=== PATIENT | female | born 1955 | race Caucasian/White ===

== ENCOUNTER → 2017-05-08 | Outpatient (CLI) | payer OTHER ==
[~2017-05-08] MED LIST: DOXYCYCLINE HY100 M5 PO; LEXAPRO20 MG PO; PRILOSEC20 M2 PO; RALOXIFENE HCL60 MG PO
[2017-05-08 11:01] LABS: BASO # 0.1 10*3/uL (0.0-0.1); BASO % 0.7 % (0.0-1.0); EOS # 0.3 10*3/uL (0.0-0.4); EOS % 4.4 % (1.0-4.0); HEMATOCRIT 39.7 % (37.0-47.0); LYMPH # 2.7 10*3/uL (1.3-4.4); LYMPH % 36.3 % (27.0-41.0); MEAN CELL VOLUME 90.8 fl (81.0-99.0); MEAN CORPUSCULAR HGB 29.7 pg (27.0-31.0); MEAN CORPUSCULAR HGB CONC 32.7 g/dl (33.0-37.0); MONO # 0.5 10*3/uL (0.1-1.0); MONO % 6.4 % (3.0-9.0); NEUT # 3.8 10*3/uL (2.3-7.9); NEUT % 51.9 % (47.0-73.0); PLATELET COUNT AUTOMATED 226 10*3/uL (130-400); RED BLOOD COUNT 4.37 10*6/uL (4.10-5.10); RED CELL DISTRI WIDTH 13.8 % (0-14.5); WHITE BLOOD COUNT 7.3 10*3/uL (4.8-10.8)
[2017-05-08 11:15] LABS: ALBUMIN 3.6 gm/dl (3.1-4.5); ALKALINE PHOSPHATASE 77 U/L (45-117); BILIRUBIN, TOTAL 0.5 mg/dl (0.2-1.0); BUN 9 mg/dl (7-24); CARBON DIOXIDE 28 mmol/L (21-32); CHLORIDE 105 mmol/L (98-107); CHOLESTEROL 233 mg/dL (<200); EST GLOM FILT AFRICAN AMERICAN > 60 ml/min; GLUCOSE 93 mg/dL (65-99); HDL CHOLESTEROL 38 mg/dl (40-60); LDL CHOLESTEROL 129 mg/dL (9-159); POTASSIUM 3.8 mmol/L (3.5-5.1); SGOT/AST 17 IU/L (3-35); SGPT/ALT 29 U/L (12-78); SODIUM 142 mmol/L (136-145); TOTAL PROTEIN 7.7 gm/dL (6.4-8.2); TRIGLYCERIDES 331 mg/dl (<150); VLDL CHOLESTEROL 66 mg/dL (6-40)
== END | disposition home or self-care (01) ==
LOC: LAB 10:28
PROVIDERS: Physician Assistant Medical
DX: E78.4 Other hyperlipidemia (principal)

== ENCOUNTER → 2018-07-18 | Outpatient (CLI) | payer OTHER | END | disposition home or self-care (01) | LOC: MAMMO 10:20 | DX: Z12.31 Encounter for screening mammogram for malignant neoplasm of breast (principal) ==

== ENCOUNTER 2020-01-08 11:25 | Inpatient (IN) | payer MEDICARE, OTHER ==
[2020-01-08] VITALS (8 sets, daily range): BP systolic 94–1149; BP diastolic 43–61
[~2020-01-08] VITALS: Ht 163 cm; Wt 81.0 kg
[2020-01-08 12:17] LABS: BASO # 0.1 10*3/uL (0.0-0.1); BASO % 0.3 % (0.0-1.0); EOS # 0.1 10*3/uL (0.0-0.4); EOS % 0.5 % (1.0-4.0); HEMATOCRIT 35.7 % (37.0-47.0); HEMOGLOBIN 11.6 g/dl (12.0-16.0); LYMPH # 1.3 10*3/uL (1.3-4.4); MEAN CELL VOLUME 89.9 fl (81.0-99.0); MEAN CORPUSCULAR HGB 29.2 pg (27.0-31.0); MEAN CORPUSCULAR HGB CONC 32.5 g/dl (33.0-37.0); MEAN PLATELET VOLUME 9.7 fl (9.6-12.3); MONO # 0.9 10*3/uL (0.1-1.0); NEUT % 86.5 % (47.0-73.0); PLATELET COUNT AUTOMATED 211 10*3/uL (130-400); RED BLOOD COUNT 3.97 10*6/uL (4.10-5.10); RED CELL DISTRI WIDTH 14.4 % (0-14.5); WHITE BLOOD COUNT 18.5 10*3/uL (4.8-10.8)
[2020-01-08 12:26] LABS: ALBUMIN 3.1 gm/dl (3.1-4.5); ALKALINE PHOSPHATASE 83 U/L (45-117); BUN 19 mg/dl (7-24); CHLORIDE 100 mmol/L (98-107); CREATININE 1.14 mg/dL (0.55-1.02); POTASSIUM 2.8 mmol/L (3.5-5.1); SGOT/AST 32 IU/L (3-35); SGPT/ALT 38 U/L (12-78); SODIUM 133 mmol/L (136-145); TOTAL PROTEIN 7.6 gm/dL (6.4-8.2)
[2020-01-08 12:27] LABS: ACT PARTIAL THROMBO TIME 30.9 SECONDS (20.0-32.1); INTERNATIONAL NORM RATIO 1.1 (2.0-3.5)
[2020-01-08 12:29] LABS: TROPONIN I < 0.015 ng/ml (<0.045)
[2020-01-08 12:56] LABS: BILIRUBIN NEGATIVE (NEGATIVE); BLOOD 3+ (NEGATIVE); CLARITY CLOUDY (CLEAR); COLOR YELLOW (YELLOW); GLUCOSE NEGATIVE (NEGATIVE); KETONE 2+ (NEGATIVE)
[2020-01-08 12:57] LABS: LEUKO ESTERASE 3+ (NEGATIVE); NITRITE POSITIVE (NEGATIVE)
[2020-01-08 12:58] LABS: BACTERIA 4+; WBC 51-100 wbc/hpf (0-5)
--- NOTE | 2020-01-08 14:42 | NUR ---
PATIENT TAKEN UPSTAIRS BY THIS NURSE. A&OX4.
[2020-01-08] MEDS ORDERED: ATORVASTATIN CA10 M1 PO (14:44)
[2020-01-08] MEDS ORDERED: ALENDRONATE SOD70 M1 PO (14:45)
[2020-01-08] MEDS ORDERED: LEVOTHYROXINE50 MCG PO (14:45)
--- NOTE | 2020-01-08 14:45 | NUR ---
A 64, admitted to , under the services of LEANNA Russell DO with a diagnosis of UTI, LEFT LOWER LEG CELLULITIS W/O FOOT. Chief complaint is CONFUSION, GROIN PAIN, REDNESS TO LEFT LOWER LEG. Patient arrived via stretcher from ER. Monitor applied. Initial assessment completed. Vital signs taken and recorded. LEANNA RUSSELL DO notified of admission to the unit. Orders received. See assessment for past medical history, medications and allergies. Patient and/or family oriented to unit. [address] visitation policy reviewed. Clothing/patient valuable form completed. GIANA PICKETT
[2020-01-08] MEDS ORDERED: VIT D3 PO (18:05)
[2020-01-08] MEDS ORDERED: B12 PO (18:06)
[2020-01-08] MEDS ORDERED: EYE VISION PO (18:07)
[2020-01-08] MEDS ORDERED: VIT PO (18:08)
[2020-01-08] MEDS ORDERED: CALCIUM PO (18:08)
[2020-01-08] MEDS ORDERED: COQ-10100 MG PO (18:09)
[2020-01-08] MEDS ORDERED: MULTIVITAMINS1 EAC6 PO (18:09)
[2020-01-08] MEDS ORDERED: OMEGA 3 FISH OIL PO (18:11)
--- NOTE | 2020-01-08 19:51 | NUR ---
PATIENT SITTING UP IN BED WITH NO NEEDS MADE. BED IN LOWEST POSITION, CALL LIGHT IN REACH
--- NOTE | 2020-01-08 21:28 | NUR ---
DR EDDY AWARE OF BLOOD PRESSURE. STATES TO DO 500 CC BOLUS OF NORMAL SALINE THEN 80 CC AN HOUR
--- NOTE | 2020-01-08 21:50 | NUR ---
MEDICATED WITH PRN TYLENOL FOR ELEVATED TEMP. WILL RECHECK FOR EFFECTIVENESS
--- NOTE | 2020-01-08 22:23 | NUR ---
DR EDDY AWARE OF PATIENT'S REPEAT POTASSIUM. STATES TO ORDER 40MEQ PO FOR NOW.
[2020-01-09] VITALS: BP 96/61
--- NOTE | 2020-01-09 01:15 | NUR ---
DR EDDY AWARE OF REPEAT BLOOD PRESSURE
[2020-01-09 02:26] VITALS: BP 108/54
--- NOTE | 2020-01-09 05:18 | NUR ---
DAYDAY GONZALES [id number] Please refer to the physician's history and physical for past medical history, comorbid conditions, and allergies. Diagnosis: UTI CELLULITIS OF LEFT LOWER EXTREMITY W/O FOOT Donaldo Score: 14,MODERATE RISK WOUND DESCRIPTIONS: Wound Number: 1 Location of the wound: lower left leg Thickness: Full Size: 1.2cm x 1.7cm x <0.1cm Tunneling: none Undermining: none Sinus Tract: none Presence of Exudate: none Amount: Light Color: Brown Odor: None Periwound Skin Appearance: Erythema measures 29.0cm x 39.0cm x <0.1cm Wound edges: approximated Pain (associated with wound): none at time of assessment How does patient state this happened? pt stated this started a couple week ago and could possible by from riding a bike without shoes Wound Number: 2 Location of the wound: right lateral foot Thickness: Partial Size: 1.0cm x 1.8cm x <0.1cm Tunneling: none Undermining: none Sinus Tract: none Presence of Exudate: none Amount: None Color: Red Odor: None Periwound Skin Appearance: Normal Wound edges: approximated Pain (associated with wound): none at time of assessment How does patient state this happened? pt stated this started a couple week ago and could possible by from riding a bike without shoes Wound Number: 3 Location of the wound: left lateral foot Thickness: Partial Size: 1.0cm x 1.0cm x <0.1cm Tunneling: none Undermining: none Sinus Tract: none Presence of Exudate: none Amount: None Color: Red Odor: None Periwound Skin Appearance: Normal Wound edges: approximated Pain (associated with wound): none at time of assessment How does patient state this happened? pt stated this started a couple week ago and could possible by from riding a bike without shoes Surface the patient is resting on: Isoflex SKIN PREVENTION RECOMMENDATION: 1. Pressure redistribution support surface as appropriate 2. Elevate heels 3. Remove boots/TEDS every shift and reapply 4. Head of bed 30 degrees as tolerated 5. Assess nutrition and hydration 6. Manage moisture 7. Avoid the use of containment devices while in bed 8. Use absorptive products on surfaces limit layers of linens on bed 9. Turn and reposition every 1-2 hours in bed and every 1 hour in chair as tolerated 10. Weight shifts every 15 minutes while up in chair 11. Offloading with pillows or device to keep heels elevated off bed 12. Monitor skin at least every shift 13. Inspect under medical devices twice a day WOUND TREATMENT RECOMMENDATIONS: Consult podiatry for areas to bilateral lower extremities. Arterial studies to bilateral lower extremities due to wounds to bilateral feet. Cleanse left lower leg, left lateral foot, right lateral foot with nss and apply sureprep around the wound therahoney to wound bed and cover with optifoam gentle every 2 days and prn for soiling. Heel raiser pro boots to bilateral feet while in bed.
--- NOTE | 2020-01-09 05:37 | NUR ---
Patient is requesting to care for these areas at home when discharged and doesn't wish to follow up in an outpatient setting at this time
--- NOTE | 2020-01-09 06:04 | NUR ---
DR CHAVES AWARE OF CONSULT. ORDER TAKEN FOR BILATERAL ARTERIAL ULTRASOUNDS OF THE LOWER LEGS
[2020-01-09 06:36] LABS: BASO # 0.1 10*3/uL (0.0-0.1); BASO % 0.4 % (0.0-1.0); EOS % 0.1 % (1.0-4.0); HEMATOCRIT 33.2 % (37.0-47.0); HEMOGLOBIN 10.4 g/dl (12.0-16.0); LYMPH # 1.4 10*3/uL (1.3-4.4); MEAN CORPUSCULAR HGB 29.8 pg (27.0-31.0); MEAN CORPUSCULAR HGB CONC 31.3 g/dl (33.0-37.0); MEAN PLATELET VOLUME 10.5 fl (9.6-12.3); MONO # 0.8 10*3/uL (0.1-1.0); MONO % 6.1 % (3.0-9.0); NEUT # 11.5 10*3/uL (2.3-7.9); PLATELET COUNT AUTOMATED 185 10*3/uL (130-400); RED BLOOD COUNT 3.49 10*6/uL (4.10-5.10); RED CELL DISTRI WIDTH 14.8 % (0-14.5); WHITE BLOOD COUNT 13.9 10*3/uL (4.8-10.8)
[2020-01-09 06:50] LABS: MEAN CELL VOLUME 95.1 fl (81.0-99.0)
[2020-01-09 06:52] LABS: ALBUMIN 2.5 gm/dl (3.1-4.5); BUN 13 mg/dl (7-24); CHLORIDE 112 mmol/L (98-107); CHOLESTEROL 119 mg/dL (<200); CREATININE 1.06 mg/dL (0.55-1.02); PHOSPHOROUS 1.1 mg/dL (2.5-4.9); SGOT/AST 35 IU/L (3-35); SGPT/ALT 32 U/L (12-78); SODIUM 141 mmol/L (136-145); TRIGLYCERIDES 202 mg/dl (<150); VLDL CHOLESTEROL 40 mg/dL (6-40)
[2020-01-09 06:59] LABS: ALKALINE PHOSPHATASE 71 U/L (45-117); FREE T4 1.06 ng/dl (0.76-1.46); HDL CHOLESTEROL 16 mg/dl (40-60); LDL CHOLESTEROL 63 mg/dL (9-159); TOTAL PROTEIN 6.4 gm/dL (6.4-8.2)
[2020-01-09 07:45] LABS: VITAMIN D, 25-HYDROXY 47.5 ng/mL (30-100)
[2020-01-09 08:00] VITALS: BP 126/52
--- NOTE | 2020-01-09 08:00 | NUR ---
Patient resting quietly with no c/o discomfort. Respirations easy and regular. Vital signs stable. No overt distress. GIANA PICKETT
--- NOTE | 2020-01-09 08:48 | NUR ---
DR AMIN NOTIFIED OF CONSULT.
--- NOTE | 2020-01-09 09:00 | NUR ---
Mechanical Maintenance Supervisor in to talk to patient. Patient states lives at home with . There are no steps in the home. Physician: richelle rosen [facility]acy: [facility] Home health services: none Patient's level of ADLs: MAX ASSIST Patient has working utilities: all working DME: wheelchair Follow-up physician's appointment after d/c: will be made by hospitalist nurse director upon discharge Does patient want to access PORTAL?: no Discharge plan discussed with patient, present, she lives at home with , she states she uses a wheelchair to get around, she states she will return home when medically stable, discussed with her VNA and she states she doesn't feel she needs any home services at this time, was in agreement, case management will follow for any home needs. AMPARO MCCURDY
[2020-01-09 12:00] VITALS: BP 137/56
--- NOTE | 2020-01-09 13:24 | NUR ---
DR MADRID NOTIFIED OF CONSULT.
[2020-01-09 16:00] VITALS: BP 117/52
--- NOTE | 2020-01-09 16:00 | NUR ---
Patient resting quietly with no c/o discomfort. Respirations easy and regular. Vital signs stable. No overt distress. GIANA PICKETT
--- NOTE | 2020-01-09 19:53 | NUR ---
PATIENT RESTING IN BED WITH NO NEEDS MADE. REQUESTING SLEEPING PILL TONIGHT. STATES SHE FEELS "MUCH BETTER". BED IN LOWEST POSITION, CALL LIGHT IN REACH
[2020-01-09 20:00] VITALS: BP 111/54
--- NOTE | 2020-01-09 20:27 | NUR ---
MEDICATED WITH PRN RESTORIL FOR C/O SLEEPLESSNESS. WILL MONITOR. BED ALARM ON, BED IN LOWEST POSITION, CALL LIGHT IN REACH
[2020-01-10] VITALS: BP 128/69
--- NOTE | 2020-01-10 01:23 | NUR ---
24 HR chart check completed.
[2020-01-10 06:58] LABS: BASO % 0.3 % (0.0-1.0); EOS # 0.1 10*3/uL (0.0-0.4); EOS % 1.4 % (1.0-4.0); HEMATOCRIT 33.4 % (37.0-47.0); HEMOGLOBIN 10.5 g/dl (12.0-16.0); LYMPH # 2.4 10*3/uL (1.3-4.4); LYMPH % 23.5 % (27.0-41.0); MEAN CELL VOLUME 93.3 fl (81.0-99.0); MEAN CORPUSCULAR HGB 29.3 pg (27.0-31.0); MEAN CORPUSCULAR HGB CONC 31.4 g/dl (33.0-37.0); MEAN PLATELET VOLUME 10.3 fl (9.6-12.3); MONO # 0.8 10*3/uL (0.1-1.0); MONO % 8.1 % (3.0-9.0); NEUT # 6.7 10*3/uL (2.3-7.9); NEUT % 66.3 % (47.0-73.0); PLATELET COUNT AUTOMATED 176 10*3/uL (130-400); RED BLOOD COUNT 3.58 10*6/uL (4.10-5.10); RED CELL DISTRI WIDTH 14.8 % (0-14.5); WHITE BLOOD COUNT 10.1 10*3/uL (4.8-10.8)
[2020-01-10 07:22] LABS: CHLORIDE 113 mmol/L (98-107); POTASSIUM 3.3 mmol/L (3.5-5.1); SODIUM 141 mmol/L (136-145)
[2020-01-10 07:27] LABS: ALBUMIN 2.3 gm/dl (3.1-4.5); ALKALINE PHOSPHATASE 125 U/L (45-117); BUN 8 mg/dl (7-24); CREATININE 0.84 mg/dL (0.55-1.02); SGOT/AST 57 IU/L (3-35); SGPT/ALT 54 U/L (12-78); TOTAL PROTEIN 6.5 gm/dL (6.4-8.2)
--- NOTE | 2020-01-10 07:30 | NUR ---
TOOK OVER CARE OF PT AT THIS TIME. PT RESTING IN BED, SITTING UP. ALERT ORIENTED AND PLEASANT MOOD. NO COMPLAINTS ARE VOICED AT THIS TIME. RESPIRATIONS EASY/UNLABORED. CALL LIGHT IN REACH.
--- NOTE | 2020-01-10 08:14 | NUR ---
24 HR chart check completed.
--- NOTE | 2020-01-10 08:40 | NUR ---
Physical Therapy evaluation completed full evaluation to follow. Recommend physical therapy per plan of care and Home w follow up outpt PT upon discharge. Thank you for this referral. Arianna Coleman PT
--- NOTE | 2020-01-10 09:00 | NUR ---
case management visits with patient, she states she will return home when medically stable and denies any home needs, was in agreement, case management will follow
--- NOTE | 2020-01-10 10:00 | NUR ---
PT DOWN FOR RENAL ULTRASOUND AT THIS TIME.
[2020-01-10 12:00] VITALS: BP 122/54
--- NOTE | 2020-01-10 12:17 | NUR ---
Occupational Therapy evaluation completed on 4 with full evaluation to follow. Recommend no further occupational therapy at this time as patient insists that at home she is indep in ADLs and transfers with her custom w/c and her stair glide and shower seat and her shoes as she can stand pivot transfer with her shoes on per pt. At this time no further OT indicated. PT will address transfers in the hospital. Thank you for this referral. Grace Mayer OTr/L
[2020-01-10 16:00] VITALS: BP 133/57
--- NOTE | 2020-01-10 17:00 | NUR ---
Hep Lock discontinued to right antecubital due to pt pulling out. Site asymptomatic. Pressure applied. Sterile dressing applied. RACHELE DOMINGO
--- NOTE | 2020-01-10 17:10 | NUR ---
IV started right antecubital with #22 protective cath after 2 attempts. Site prepped with Chloroprep. Sterile dressing applied. Patient tolerated procedure well. IV infusing at 80 cc/hr. RACHELE DOMINGO
--- NOTE | 2020-01-10 19:11 | NUR ---
PATIENT RESTING IN BED WITH VISITORS AT BEDSIDE. DENIES ANY NEEDS MADE. BED IN LOWEST POSITION, CALL LIGHT IN REACH
[2020-01-10 20:00] VITALS: BP 128/64
[2020-01-11 01:04] VITALS: BP 128/66
[2020-01-11 06:34] LABS: BASO % 0.5 % (0.0-1.0); EOS # 0.2 10*3/uL (0.0-0.4); EOS % 2.8 % (1.0-4.0); HEMOGLOBIN 10.3 g/dl (12.0-16.0); LYMPH # 2.1 10*3/uL (1.3-4.4); LYMPH % 27.6 % (27.0-41.0); MEAN CELL VOLUME 93.8 fl (81.0-99.0); MEAN CORPUSCULAR HGB 29.3 pg (27.0-31.0); MEAN CORPUSCULAR HGB CONC 31.2 g/dl (33.0-37.0); MEAN PLATELET VOLUME 10.2 fl (9.6-12.3); MONO # 0.6 10*3/uL (0.1-1.0); MONO % 7.9 % (3.0-9.0); NEUT # 4.5 10*3/uL (2.3-7.9); NEUT % 60.5 % (47.0-73.0); PLATELET COUNT AUTOMATED 183 10*3/uL (130-400); RED BLOOD COUNT 3.52 10*6/uL (4.10-5.10); RED CELL DISTRI WIDTH 15.1 % (0-14.5); WHITE BLOOD COUNT 7.4 10*3/uL (4.8-10.8)
--- NOTE | 2020-01-11 06:56 | NUR ---
UNABLE TO FIND BACTROBAN TO APPLY TO LEFT LEG AND FOOT WOUNDS. PER DAYSHIFT NURSE, PODIETRY DOCTOR HAD TAKEN IT YESTERDAY.
[2020-01-11 07:01] LABS: BUN 5 mg/dl (7-24); CHLORIDE 112 mmol/L (98-107); CREATININE 0.68 mg/dL (0.55-1.02); PHOSPHOROUS 2.4 mg/dL (2.5-4.9); POTASSIUM 3.8 mmol/L (3.5-5.1); SODIUM 141 mmol/L (136-145)
--- NOTE | 2020-01-11 07:30 | NUR ---
TOOK OVER CARE OF PT AT THIS TIME. PT RESTING IN BED. RESPIRATIONS EASY AND UNLABORED ON ROOM AIR. NO S/S OF DISTRESS NOTED. PT SLEEPING AND NOT AWAKENED AT THIS TIME. CALL LIGHT IN REACH.
--- NOTE | 2020-01-11 09:30 | NUR ---
ASSESSMENT COMPLETED. MEDS GIVEN AT THIS TIME. VITALS WNL. RESPIRATIONS UNLABORED ON ROOM AIR. CALL LIGHT IN REACH.
[2020-01-11 12:00] VITALS: BP 123/51
--- NOTE | 2020-01-11 13:00 | NUR ---
WOUND CARE PERFORMED AT THIS TIME. PT TOLERATED WELL.
--- NOTE | 2020-01-11 15:00 | NUR ---
PRIMARY TEAM AND PODIATRY GIVE OKAY FOR PT TO TAKE SHOWER. PT PROVIDED WITH SUPPLIES, IV SITE WRAPPED, HEART MONITOR REMOVED FOR NOW. PT ASSISTING HER. WILL MONITOR.
[2020-01-11 16:00] VITALS: BP 133/62
--- NOTE | 2020-01-11 19:30 | NUR ---
PT RESTING IN BED. VOICES NO CONCERNS AT THIS TIME. RESPS EASY AND NON LABORED. NO S/S OF DISTRESS NOTED. VSS. WHITE BOARD UPDATED. CALL LIGHT WITHIN REACH
[2020-01-11 20:00] VITALS: BP 155/70
--- NOTE | 2020-01-11 21:04 | NUR ---
PT REQUESTING RESTORIL TO HELP HER SLEEP TONIGHT. MEDICATED PER ORDER. WILL MONITOR. RESPS EASY AND NON LABORED. NO S/S OF DISTRESS NOTED. CALL LIGHT WITHIN REACH
--- NOTE | 2020-01-11 23:54 | NUR ---
MEDICATION APPEARS EFFECTIVE. PT SLEEPING. RESPS EASY AND NON LABORED. NO S/S OF DISTRESS NOTED. CALL LIGHT WITHIN REACH
[2020-01-12] VITALS: BP 137/66
--- NOTE | 2020-01-12 01:16 | NUR ---
24 HR chart check completed.
--- NOTE | 2020-01-12 07:39 | NUR ---
24 HR chart check completed.
[2020-01-12 08:00] VITALS: BP 105/52; BP 132/68
--- NOTE | 2020-01-12 08:45 | NUR ---
AWAKE, RESTING IN BED WITH NO ACUTE DISTRESS NOTED. RESPIRATIONS EASY. LUNGS DIMINISHED, CLEAR. PULSE OX 98% RA. JONAS PATENT. TRACE BLE EDEMA NOTED WITH HEEL PROTECTORS IN PLACE. CALL LIGHT WITHIN REACH. NO VOICED COMPLAINTS.
[2020-01-12 12:00] VITALS: BP 112/50
--- NOTE | 2020-01-12 12:50 | NUR ---
VISIITNG WITH FAMILY. NO DISTRESS NOTED. RESPIRATIONS EASY. CALL LIGHT WITHIN REACH
[2020-01-12 16:00] VITALS: BP 137/65
[2020-01-12 20:00] VITALS: BP 112/43
[2020-01-13] VITALS: BP 144/75
[2020-01-13 06:03] LABS: BUN 5 mg/dl (7-24); CHLORIDE 109 mmol/L (98-107); CREATININE 0.62 mg/dL (0.55-1.02); PHOSPHOROUS 3.5 mg/dL (2.5-4.9); SODIUM 140 mmol/L (136-145)
[2020-01-13 06:27] LABS: BASO % 0.4 % (0.0-1.0); EOS # 0.3 10*3/uL (0.0-0.4); EOS % 3.7 % (1.0-4.0); HEMATOCRIT 34.3 % (37.0-47.0); HEMOGLOBIN 10.5 g/dl (12.0-16.0); LYMPH # 2.7 10*3/uL (1.3-4.4); LYMPH % 29.5 % (27.0-41.0); MEAN CELL VOLUME 93.7 fl (81.0-99.0); MEAN CORPUSCULAR HGB 28.7 pg (27.0-31.0); MEAN CORPUSCULAR HGB CONC 30.6 g/dl (33.0-37.0); MEAN PLATELET VOLUME 10.7 fl (9.6-12.3); MONO # 0.8 10*3/uL (0.1-1.0); MONO % 8.4 % (3.0-9.0); NEUT # 5.2 10*3/uL (2.3-7.9); NEUT % 56.6 % (47.0-73.0); PLATELET COUNT AUTOMATED 236 10*3/uL (130-400); RED BLOOD COUNT 3.66 10*6/uL (4.10-5.10); RED CELL DISTRI WIDTH 14.7 % (0-14.5); WHITE BLOOD COUNT 9.1 10*3/uL (4.8-10.8)
--- NOTE | 2020-01-13 09:00 | NUR ---
case management visits with patient, present, she states she will return home when medically stable and denies any home needs
--- NOTE | 2020-01-13 11:10 | NUR ---
PHYSICAL THERAPY Patient seen this am 1;1 for therapy visit and was resting supine in bed upon therapist arrival. Patient identified by name / and reports no new c/o's at this time. Patients was present this session as patient transfers supine to sit EOB, SBA x 1. Patient tolerated static EOB sit x several minutes to collect herself and stated she only stands to perform SPT to her w/c / BSC. Patient performed several sit to stand transfers, MIN/CGA, use of wh walker standing support and tolerated < 45 seconds static stand each trial. Patient reports increased B LE pain / weakness and is very fearful of falling. Patient also able to complete seated B LE therex, all planes, x 10 reps each without c/o and returned to supine in bed, CGA x 1. Patient remained in bed with call light, tray table, telephone and bed alarm for safety. Will continue per POC as tolerated, total treatment time 16 minutes. Darrell Merchant, [facility]
[2020-01-13 12:00] VITALS: BP 136/73
[2020-01-13] MEDS ORDERED: OMNICEF300 MG PO (12:33)
[2020-01-13] MEDS ORDERED: DOXYCYCLINE100 M3 PO (12:33)
--- NOTE | 2020-01-13 14:22 | NUR ---
Discharge instructions reviewed with patient/family. Patient receptive and verbalizes understanding. Follow-up care arranged. Written instructions given to patient/family. GABY DUMONT
--- NOTE | 2020-01-13 14:28 | NUR ---
WHEN GETTING DRESSED AND INTO WHEELCHAIR FOR DISCHARGE, PATIENT SUSTAINED 0.5CM X 0.1CM X <0.1CM SKIN TEAR, SHE REFUSED PHOTOGRAPHY OF THE WOUND, BUT AREA CLEANED AND BANDAID APPLIED.
--- NOTE | 2020-01-13 14:30 | NUR ---
[facility] ACCOMPANIED BY [facility], FOR TRANSPORT HOME BY PRIVATE VEHICLE WITH HER .
--- NOTE | 2020-01-14 07:25 | NUR ---
PHYSICAL THERAPY CO-SIGN I approve of the Physical Therapy notes written above. Arianna Coleman PT
== END 2020-01-13 14:33 | disposition home or self-care (01) | DRG 871 ==
LOC: ED 11:25 → EDHOLD 13:08 → 4E 13:08
PROVIDERS: Emergency Medicine; Hospitalist; Internal Medicine; Registered Nurse; ADMIT Family Medicine
DX: A41.9 Sepsis, unspecified organism (principal); G93.41 Metabolic encephalopathy; N17.0 Acute kidney failure with tubular necrosis; L03.116 Cellulitis of left lower limb; E87.1 Hypo-osmolality and hyponatremia; N30.01 Acute cystitis with hematuria; E44.0 Moderate protein-calorie malnutrition; L97.929 Non-pressure chronic ulcer of unspecified part of left lower leg with unspecified severity; L97.919 Non-pressure chronic ulcer of unspecified part of right lower leg with unspecified severity; N28.0 Ischemia and infarction of kidney; K21.9 Gastro-esophageal reflux disease without esophagitis; E87.6 Hypokalemia; E78.6 Lipoprotein deficiency; F41.1 Generalized anxiety disorder; M81.0 Age-related osteoporosis without current pathological fracture; B96.20 Unspecified Escherichia coli [E. coli] as the cause of diseases classified elsewhere; E83.39 Other disorders of phosphorus metabolism; E83.51 Hypocalcemia; Z88.1 Allergy status to other antibiotic agents; Z88.2 Allergy status to sulfonamides; Z88.8 Allergy status to other drugs, medicaments and biological substances; Z98.51 Tubal ligation status; Z80.3 Family history of malignant neoplasm of breast; Z82.69 Family history of other diseases of the musculoskeletal system and connective tissue; Z68.30 Body mass index [BMI] 30.0-30.9, adult

== ENCOUNTER → 2021-01-19 | Outpatient (CLI) | payer MEDICARE, OTHER ==
[~2021-01-19] MED LIST changes: +ALENDRONATE SOD70 M1 PO; +ATORVASTATIN CA10 M1 PO; +B12 PO; +CALCIUM PO; +COQ-10100 MG PO; +DOXYCYCLINE100 M3 PO; +EYE VISION PO; +LEVOTHYROXINE50 MCG PO; +MULTIVITAMINS1 EAC6 PO; +OMEGA 3 FISH OIL PO; +OMNICEF300 MG PO; +VIT D3 PO; +VIT PO
== END | disposition home or self-care (01) ==
LOC: RAD 05:00
PROVIDERS: ATTEND Nurse Practitioner Women's Health
DX: Z01.419 Encounter for gynecological examination (general) (routine) without abnormal findings (principal); M85.80 Other specified disorders of bone density and structure, unspecified site; Z78.0 Asymptomatic menopausal state

== ENCOUNTER 2024-01-16 09:08 | Emergency (ER) | payer MEDICARE, OTHER ==
[~2024-01-16] VITALS: Ht 1645 cm; Wt 81.6 kg
[2024-01-16 09:31] VITALS: BP 149/66
[2024-01-16] MEDS ORDERED: CEPHALEXIN500 M1 PO (09:48)
[2024-01-16] MEDS ORDERED: CEPHALEXIN 500 MG CAP PO ONE (09:50)
== END 2024-01-16 09:52 | disposition home or self-care (01) ==
LOC: ED 09:08
DX: S80.922A Unspecified superficial injury of left lower leg, initial encounter (principal); K21.9 Gastro-esophageal reflux disease without esophagitis; Z88.2 Allergy status to sulfonamides; Z88.1 Allergy status to other antibiotic agents; Z88.8 Allergy status to other drugs, medicaments and biological substances; Z98.51 Tubal ligation status; Z90.89 Acquired absence of other organs; Z98.890 Other specified postprocedural states; X58.XXXA Exposure to other specified factors, initial encounter; Y93.89 Activity, other specified; Y92.89 Other specified places as the place of occurrence of the external cause; Y99.8 Other external cause status

== ENCOUNTER → 2024-01-23 | Outpatient (CLI) | payer MEDICARE, OTHER ==
[~2024-01-23] MED LIST changes: +CEPHALEXIN500 M1 PO
== END | disposition home or self-care (01) ==
LOC: WOUNDCARE 01:49
PROVIDERS: ATTEND Nurse Practitioner Family
DX: S81.812A Laceration without foreign body, left lower leg, initial encounter (principal); S81.802A Unspecified open wound, left lower leg, initial encounter; I83.892 Varicose veins of left lower extremity with other complications; E03.9 Hypothyroidism, unspecified; E78.5 Hyperlipidemia, unspecified; E55.9 Vitamin D deficiency, unspecified; K21.9 Gastro-esophageal reflux disease without esophagitis; Z98.51 Tubal ligation status; X58.XXXA Exposure to other specified factors, initial encounter; Y93.89 Activity, other specified; Y92.89 Other specified places as the place of occurrence of the external cause; Y99.8 Other external cause status

== ENCOUNTER → 2024-01-30 | Outpatient (CLI) | payer MEDICARE, OTHER | END | disposition home or self-care (01) | LOC: WOUNDCARE 01:19 | PROVIDERS: ATTEND Nurse Practitioner Family | DX: S81.812D Laceration without foreign body, left lower leg, subsequent encounter (principal); S81.802D Unspecified open wound, left lower leg, subsequent encounter; S81.802A Unspecified open wound, left lower leg, initial encounter; I83.892 Varicose veins of left lower extremity with other complications; E03.9 Hypothyroidism, unspecified; E78.5 Hyperlipidemia, unspecified; E55.9 Vitamin D deficiency, unspecified; K21.9 Gastro-esophageal reflux disease without esophagitis; Z98.51 Tubal ligation status; X58.XXXD Exposure to other specified factors, subsequent encounter; X58.XXXA Exposure to other specified factors, initial encounter; Y93.89 Activity, other specified; Y92.89 Other specified places as the place of occurrence of the external cause; Y99.8 Other external cause status ==

== ENCOUNTER → 2024-02-06 | Outpatient (CLI) | payer MEDICARE, OTHER | END | disposition home or self-care (01) | LOC: WOUNDCARE 02:13 | PROVIDERS: ATTEND Nurse Practitioner Family | DX: S81.812D Laceration without foreign body, left lower leg, subsequent encounter (principal); S81.802D Unspecified open wound, left lower leg, subsequent encounter; I83.892 Varicose veins of left lower extremity with other complications; R26.89 Other abnormalities of gait and mobility; E03.9 Hypothyroidism, unspecified; E78.5 Hyperlipidemia, unspecified; E55.9 Vitamin D deficiency, unspecified; K21.9 Gastro-esophageal reflux disease without esophagitis; Z99.3 Dependence on wheelchair; Z98.51 Tubal ligation status; Z98.890 Other specified postprocedural states; Z79.899 Other long term (current) drug therapy; X58.XXXD Exposure to other specified factors, subsequent encounter ==

== ENCOUNTER → 2024-02-12 | Outpatient (CLI) | payer MEDICARE, OTHER | END | disposition home or self-care (01) | LOC: WOUNDCARE 00:26 | PROVIDERS: ATTEND Nurse Practitioner Family | DX: S81.812A Laceration without foreign body, left lower leg, initial encounter (principal); S81.812D Laceration without foreign body, left lower leg, subsequent encounter; S81.802D Unspecified open wound, left lower leg, subsequent encounter; I83.892 Varicose veins of left lower extremity with other complications; E03.9 Hypothyroidism, unspecified; E78.5 Hyperlipidemia, unspecified; E55.9 Vitamin D deficiency, unspecified; K21.9 Gastro-esophageal reflux disease without esophagitis; R26.89 Other abnormalities of gait and mobility; Z98.51 Tubal ligation status; Z79.899 Other long term (current) drug therapy; X58.XXXD Exposure to other specified factors, subsequent encounter; X58.XXXA Exposure to other specified factors, initial encounter; Y93.89 Activity, other specified; Y92.89 Other specified places as the place of occurrence of the external cause; Y99.8 Other external cause status ==

== ENCOUNTER → 2024-02-19 | Outpatient (CLI) | payer MEDICARE, OTHER | END | disposition home or self-care (01) | LOC: WOUNDCARE 03:44 | PROVIDERS: ATTEND Nurse Practitioner Family | DX: S81.812D Laceration without foreign body, left lower leg, subsequent encounter (principal); S81.802D Unspecified open wound, left lower leg, subsequent encounter; I83.892 Varicose veins of left lower extremity with other complications; E03.9 Hypothyroidism, unspecified; E78.5 Hyperlipidemia, unspecified; E55.9 Vitamin D deficiency, unspecified; K21.9 Gastro-esophageal reflux disease without esophagitis; R26.89 Other abnormalities of gait and mobility; Z98.51 Tubal ligation status; Z79.899 Other long term (current) drug therapy; X58.XXXD Exposure to other specified factors, subsequent encounter ==

== ENCOUNTER → 2024-02-26 | Outpatient (CLI) | payer MEDICARE, OTHER | END | disposition home or self-care (01) | LOC: WOUNDCARE 00:01 | PROVIDERS: ATTEND Nurse Practitioner Family | DX: S81.812D Laceration without foreign body, left lower leg, subsequent encounter (principal); S81.802D Unspecified open wound, left lower leg, subsequent encounter; I83.892 Varicose veins of left lower extremity with other complications; E03.9 Hypothyroidism, unspecified; E78.5 Hyperlipidemia, unspecified; E55.9 Vitamin D deficiency, unspecified; K21.9 Gastro-esophageal reflux disease without esophagitis; R26.89 Other abnormalities of gait and mobility; Z99.3 Dependence on wheelchair; Z98.51 Tubal ligation status; Z79.899 Other long term (current) drug therapy; X58.XXXD Exposure to other specified factors, subsequent encounter ==

== ENCOUNTER → 2024-03-04 | Outpatient (CLI) | payer MEDICARE, OTHER | END | disposition home or self-care (01) | LOC: WOUNDCARE 04:03 | PROVIDERS: ATTEND Nurse Practitioner Family | DX: S81.812D Laceration without foreign body, left lower leg, subsequent encounter (principal); I83.892 Varicose veins of left lower extremity with other complications; E03.9 Hypothyroidism, unspecified; E78.5 Hyperlipidemia, unspecified; E55.9 Vitamin D deficiency, unspecified; K21.9 Gastro-esophageal reflux disease without esophagitis; R26.89 Other abnormalities of gait and mobility; Z99.3 Dependence on wheelchair; Z98.51 Tubal ligation status; Z79.899 Other long term (current) drug therapy; X58.XXXD Exposure to other specified factors, subsequent encounter ==

== ENCOUNTER → 2024-03-11 | Outpatient (CLI) | payer MEDICARE, OTHER | END | disposition home or self-care (01) | LOC: WOUNDCARE 01:48 | PROVIDERS: ATTEND Nurse Practitioner Family | DX: S81.812D Laceration without foreign body, left lower leg, subsequent encounter (principal); I83.892 Varicose veins of left lower extremity with other complications; E03.9 Hypothyroidism, unspecified; E78.5 Hyperlipidemia, unspecified; E55.9 Vitamin D deficiency, unspecified; K21.9 Gastro-esophageal reflux disease without esophagitis; R26.89 Other abnormalities of gait and mobility; Z99.3 Dependence on wheelchair; Z98.51 Tubal ligation status; Z79.899 Other long term (current) drug therapy; X58.XXXD Exposure to other specified factors, subsequent encounter ==